=== PATIENT | female | born 1955 | race Asian ===

== ENCOUNTER 2017-09-10 17:12 | Emergency (ER) | payer SELFPAY ==
[~2017-09-10] VITALS: Ht 157.5 cm; Wt 89.6 kg
[2017-09-10 17:15] VITALS: Ht 157.5 cm; Wt 89.6 kg
[2017-09-10 19:31] VITALS: BP 180/92
== END 2017-09-10 21:21 | disposition left against medical advice (07) ==
LOC: E/R 17:12
DX: Z53.21 Procedure and treatment not carried out due to patient leaving prior to being seen by health care provider (principal)